=== PATIENT | male | born 1995 | race Two or more races ===

== ENCOUNTER 2025-07-14 16:55 | Emergency (ER) | payer OTHER ==
[~2025-07-14] VITALS: Ht 167.6 cm; Wt 66.0 kg
[2025-07-14 17:04] VITALS: TEMP 98.2
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
[2025-07-14] MEDS ORDERED: IBUP-1456 PO (18:08)
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
[2025-07-14 18:23] VITALS: BP 137/68; PULSE 61; RESP 18; O2SAT 98
== END 2025-07-14 18:15 | disposition home or self-care (01) ==
LOC: EDBD 16:55 → ER 16:55
DX: S29.011A Strain of muscle and tendon of front wall of thorax, initial encounter (principal); V89.2XXA Person injured in unspecified motor-vehicle accident, traffic, initial encounter; Y93.I9 Activity, other involving external motion; Y92.488 Other paved roadways as the place of occurrence of the external cause; Y99.8 Other external cause status
CPT/HCPCS: 71046